=== PATIENT | female | born 1975 | race Caucasian/White ===

== ENCOUNTER 2022-10-26 08:05 | Outpatient (CLI) | payer BC ==
[2022-10-26 11:21] LABS: Hemoglobin 14.1 g/dL (12.0-15.5); Mean Corpuscular HGB CONC 34.4 g/dL (32.0-36.0); Mean Corpuscular Hemoglobin 31.4 pg (27.0-33.0); Mean Corpuscular Volume 91.3 fl (81.6-98.3); Mean Platelet Volume 9.7 fl (7.4-10.4); Platelet Count 243 10x3/uL (150-450); RBC Distribution Width 12.2 % (11.5-14.5); Red Blood Cell (RBC) Count 4.49 10x6/uL (3.90-5.03)
[2022-10-26 11:47] LABS: Anion Gap 12 mmol/L (10-20); BUN (Urea Nitrogen) 9 mg/dL (7.0-18.7); Calc. Creatinine Clearance 0 mL/min (70-130); Calcium 9.7 mg/dL (7.8-10.44); Carbon Dioxide 26 mmol/L (22-29); Chloride 103 mmol/L (98-107); Estimated GFR 106; Glucose 70 mg/dL (70-105); Potassium 4.2 mmol/L (3.5-5.1); Sodium 137 mmol/L (136-145)
== END 2022-10-26 08:06 | disposition home or self-care (01) ==
LOC: CSHLAB 08:05
PROVIDERS: ATTEND Podiatrist Foot & Ankle Surgery
DX: Z01.818 Encounter for other preprocedural examination (principal); M21.612 Bunion of left foot; M25.375 Other instability, left foot
CPT/HCPCS: 80048; 85027; 93005; 93010

== ENCOUNTER 2022-10-28 08:55 | Day surgery (SDC) | payer BC ==
[2022-10-27 08:43] VITALS: BMI 22.6
[~2022-10-28 08:55] MED LIST: Bupivacaine PF 0.5% 30 ML VIAL ONE; Neomycin-Polymyxin 1 ML AMP ONE
[2022-10-28] MEDS ORDERED: CEFAZOLIN 2 GM VIAL ONE (10:31)
[2022-10-28] MEDS ORDERED: Midazolam HCl 2 mg/2 ml Vial ONE ×2 (11:03→11:10)
[2022-10-28] MEDS ORDERED: Ondansetron PF 4 MG/2 ML Vial ONE (11:10)
[2022-10-28] MEDS ORDERED: Fentanyl 100 MCG/2 ML VIAL ONE (11:10)
[2022-10-28] MEDS ORDERED: PROPOFOL 20 ML ONE (11:10)
[2022-10-28] MEDS ORDERED: Dexamethasone 4 mg/ml Vial ONE (11:10)
[2022-10-28] MEDS ORDERED: Lidocaine 1% PF 5 ML VIAL ONE (11:11)
[2022-10-28] MEDS ORDERED: Zolpidem Tartrate 5 MG TAB PO PRN (11:15)
[2022-10-28] MEDS ORDERED: Ondansetron PF 4 MG/2 ML Vial IVP PRN (11:15)
[2022-10-28] MEDS ORDERED: Promethazine HCl 25 MG/ML VIAL IM PRN (11:15)
[2022-10-28] MEDS ORDERED: Ropivacaine 0.2% 550 ML 550 ML NERVE BLCK SCH (11:15)
[2022-10-28] MEDS ORDERED: PHENYLEPHRINE-NS 100 MCG/ML 10 ML SYRINGE ONE (11:42)
== END 2022-10-28 14:10 | disposition home or self-care (01) ==
LOC: CSHSDC 08:55
PROVIDERS: ATTEND Podiatrist Foot & Ankle Surgery
PROC: 0SGN0JZ Fusion of Left Metatarsal-Phalangeal Joint with Synthetic Substitute, Open Approach (ICD-10-PCS; principal; 2022-10-28)
DX: M20.12 Hallux valgus (acquired), left foot (principal); M79.672 Pain in left foot; Z79.899 Other long term (current) drug therapy; Z88.8 Allergy status to other drugs, medicaments and biological substances
CPT/HCPCS: A4306; C1713; C1769; C1776; J1100; J2250; J2405; J2704; J2795; J3010; S0020